=== PATIENT | female | born 1955 | race Caucasian/White ===

== ENCOUNTER → 2016-02-24 | Outpatient (CLI) | payer BC ==
[~2016-02-24] MED LIST: ACET325T96 PO; ASPCH81X PO; IBUP-1451 PO; LTMOPS OPB; METO25TA56 PO; MULT-513 PO; TRAZ50TA35 PO
[2016-02-24 13:14] LABS: BASO % 0.2 %; BASO ABS # 0.02 K/uL (0-0.2); COMPLETE YES; EOS % 1.4 %; HEMATOCRIT 42.9 % (37-47); IG% 0.1 %; LYMPH % 26.7 %; LYMPH ABS # 2.25 K/uL (1.2-3.4); MEAN CELL VOLUME 87.6 fL (80-100); MEAN CORPUSCULAR HEMOGLOBIN 29.4 pg (25-34); MEAN CORPUSCULAR HGB CONC 33.6 g/dl (32-36); MEAN PLATELET VOLUME 9.9 fL (7.4-10.4); MONO % 5.3 %; NEUT % 66.3 %; PLATELET COUNT 320 K/uL (130-400); WHITE BLOOD COUNT 8.42 K/uL (4.8-10.8)
[2016-02-24 13:52] LABS: ALT/SGPT 23 U/L (12-78); BLOOD UREA NITROGEN 18 mg/dl (7-18); CALCIUM 9.3 mg/dl (8.5-10.1); CARBON DIOXIDE 28 mmol/L (21-32); CHLORIDE 107 mmol/L (98-107); CREATININE 0.76 mg/dl (0.60-1.20); GLUCOSE 89 mg/dl (70-99); POTASSIUM 3.9 mmol/L (3.5-5.1); SODIUM 141 mmol/L (136-145)
[2016-02-24 14:02] LABS: ALB/GLOB RATIO 1.2 (0.9-2); ALKALINE PHOSPHATASE 74 U/L (45-117); AST/SGOT 14 U/L (15-37)
== END | disposition home or self-care (01) ==
LOC: C.LABBC 11:24
PROVIDERS: ATTEND Nurse Practitioner Family
DX: R53.83 Other fatigue (principal)

== ENCOUNTER → 2016-06-21 | Outpatient (CLI) | payer BC ==
--- NOTE | 2016-06-22 14:53 | MAMMOGRAPHY REPORT ---
BILATERAL DIGITAL SCREENING MAMMOGRAM TOMOSYNTHESIS WITH CAD: 06/21/2016 CLINICAL HISTORY: Routine screening. Patient has no complaints. TECHNIQUE: Breast tomosynthesis in addition to standard 2D mammography was performed. Current study was also evaluated with a Computer Aided Detection (CAD) system. COMPARISON: Comparison is made to exams dated: 06/12/2015 mammogram, 06/04/2014 mammogram, 06/03/2013 m ammogram, 05/03/2012 mammogram, 04/26/2011 mammogram, and 04/06/2010 mammogram - [facility] enter. BREAST COMPOSITION: The tissue of both breasts is heterogeneously dense, which may obscure small ma sses. FINDINGS: The parenchymal pattern is unchanged. No developing mass, architectural distortion or clu ster of suspicious microcalcifications is seen in either breast. IMPRESSION: ACR BI-RADS CATEGORY 2: BENIGN There is no mammographic evidence of malignancy. A 1 year screening mammogram is recommended. The p atient will receive written notification of the results. Approximately 10% of breast cancers are not detected with mammography. A negative mammographic repor t should not delay biopsy if a clinically suggestive mass is present. Dorene Galvin M.D. ay/:06/21/2016 17:26:57 Outsole Skiver: Tracy ALONZO(R)(M), [facility] letter sent: Normal 1/2 BI-RADS Code: ACR BI-RADS Category 2: Benign
== END ==
LOC: C.MAMM 13:56
PROVIDERS: ATTEND Nurse Practitioner Family
DX: Z12.31 Encounter for screening mammogram for malignant neoplasm of breast (principal)

== ENCOUNTER → 2017-01-04 | Outpatient (CLI) | payer BC | END | disposition home or self-care (01) | LOC: C.PAPS 11:02 | PROVIDERS: ATTEND Obstetrics & Gynecology | DX: Z01.419 Encounter for gynecological examination (general) (routine) without abnormal findings (principal) ==

== ENCOUNTER → 2017-01-27 | Outpatient (CLI) | payer BC ==
[~2017-01-27] MED LIST changes: +ACET-1693 PO; -ACET325T96 PO
--- NOTE | 2017-01-27 09:50 | DIAGNOSTIC IMAGING REPORT ---
R HEEL MIN 2 VIEWS HISTORY: 61 years-old Female HEEL PAIN subacute right heel pain for 6 weeks without known trauma or injury COMPARISON: None available TECHNIQUE: 2 views of the right calcaneus FINDINGS: Moderate enthesophyte noted at the Achilles insertion site about the calcaneus. Mild soft tissue prominence in the region of the distal Achilles tendon may reflect tendinosis. Small enthesophyte noted along the plantar margin of the calcaneus. No acute fracture or dislocation. Mild dorsal spurring of the midfoot. IMPRESSION: Degenerative changes as above without acute fracture. The above report was generated using voice recognition software. It may contain grammatical, syntax or spelling errors. Electronically signed by: Aiden Campos M.D. 01/27/2017 9:49 AM Dictated Date/Time: 01/27/2017 9:47 AM
[2017-01-27 11:03] LABS: BASO % 0.5 %; BASO ABS # 0.03 K/uL (0-0.2); EOS % 1.4 %; EOS ABS # 0.09 K/uL (0-0.5); HEMATOCRIT 43.7 % (37-47); HEMOGLOBIN 14.5 g/dL (12.0-16.0); IG# 0.01 K/uL (0.00-0.02); LYMPH % 29.9 %; LYMPH ABS # 1.98 K/uL (1.2-3.4); MEAN CELL VOLUME 87.2 fL (80-100); MEAN CORPUSCULAR HEMOGLOBIN 28.9 pg (25-34); MEAN CORPUSCULAR HGB CONC 33.2 g/dl (32-36); MEAN PLATELET VOLUME 9.6 fL (7.4-10.4); MONO % 6.9 %; MONO ABS # 0.46 K/uL (0.11-0.59); NEUT % 61.1 %; NEUT ABS # 4.05 K/uL (1.4-6.5); PLATELET COUNT 302 K/uL (130-400); RED CELL DISTRIBUTION WIDTH CV 12.4 % (11.5-14.5); RED CELL DISTRIBUTION WIDTH SD 39.8 fL (36.4-46.3); WHITE BLOOD COUNT 6.62 K/uL (4.8-10.8)
[2017-01-27 11:22] LABS: ALBUMIN 3.8 gm/dl (3.4-5.0); ALT/SGPT 20 U/L (12-78); BLOOD UREA NITROGEN 19 mg/dl (7-18); CALCIUM 8.4 mg/dl (8.5-10.1); CARBON DIOXIDE 24 mmol/L (21-32); CHOLESTEROL 185 mg/dl (0-200); CREATININE 0.74 mg/dl (0.60-1.20); GLUCOSE 96 mg/dl (70-99); POTASSIUM 3.8 mmol/L (3.5-5.1); SODIUM 139 mmol/L (136-145)
[2017-01-27 11:33] LABS: ALKALINE PHOSPHATASE 73 U/L (45-117); AST/SGOT 13 U/L (15-37); LDL CHOLESTEROL CALCULATED 106 mg/dl; TOTAL PROTEIN 7.2 gm/dl (6.4-8.2)
== END | disposition home or self-care (01) ==
LOC: C.RADBC 09:03
PROVIDERS: ATTEND Nurse Practitioner Family
DX: Z13.220 Encounter for screening for lipoid disorders (principal); R53.83 Other fatigue; Z82.49 Family history of ischemic heart disease and other diseases of the circulatory system

== ENCOUNTER → 2017-04-27 | Outpatient (CLI) | payer OTHER | END | disposition home or self-care (01) | LOC: C.LABBC 08:45 | PROVIDERS: ATTEND Nurse Practitioner Family | DX: R79.89 Other specified abnormal findings of blood chemistry (principal); R17 Unspecified jaundice ==

== ENCOUNTER → 2017-06-23 | Outpatient (CLI) | payer OTHER ==
--- NOTE | 2017-06-26 15:08 | MAMMOGRAPHY REPORT ---
BILATERAL DIGITAL SCREENING MAMMOGRAM TOMOSYNTHESIS WITH CAD: 06/23/2017 CLINICAL HISTORY: Routine screening. Patient has no complaints. TECHNIQUE: Breast tomosynthesis in addition to standard 2D mammography was performed. Current study was also evaluated with a Computer Aided Detection (CAD) system. COMPARISON: Comparison is made to exams dated: 06/21/2016 mammogram, 06/12/2015 mammogram, 06/04/2014 ma mmogram, 06/03/2013 mammogram, 05/03/2012 mammogram, and 04/26/2011 mammogram - [facility] nter. BREAST COMPOSITION: The tissue of both breasts is heterogeneously dense, which may obscure small mas ses. FINDINGS: There is a 14 mm asymmetry seen within the left breast along the posterior nipple line on t he cc view, as well as a 16 mm asymmetry seen within the left subareolar breast on the cc view more m edially, for which spot compression tomosynthesis views and possible breast ultrasound are recommende d for further evaluation. The remainder of both breasts are stable compared to prior exams, without suspicious masses, calcific ations, or areas of architectural distortion noted. Asymmetry in the right superior breast on the ML O view is stable compared to multiple prior exams including the 2010 exam. IMPRESSION: ACR BI-RADS CATEGORY 0: INCOMPLETE EVALUATION: NEED ADDITIONAL IMAGING EVALUATION Left breast asymmetries, for which additional imaging evaluation is recommended. The patient will be called to schedule an appointment. Approximately 10% of breast cancers are not detected with mammography. A negative mammographic report should not delay biopsy if a clinically suggestive mass is present. Fidelina Montalvo M.D. ah/:06/24/2017 11:34:36 Emts: Tracy ALONZO(R)(M), [facility] letter sent: Addl Imaging 0 BI-RADS Code: ACR BI-RADS Category 0: Incomplete Evaluation: Need Additional Imaging Evaluation
== END | disposition home or self-care (01) ==
LOC: C.MAMM 13:55
PROVIDERS: ATTEND Nurse Practitioner Family
DX: Z12.31 Encounter for screening mammogram for malignant neoplasm of breast (principal); N64.89 Other specified disorders of breast

== ENCOUNTER 2023-02-20 06:30 | Observation (INO) ==
--- NOTE | 2023-01-18 13:39 | PAT Medication Instructions ---
Medication Instructions Date of Service January 18, 2023 Home Medications Medication Instructions Recorded amoxicillin 500 mg capsule 2,000 mg (4 x 500 mg) PO .COMPLEX 09/24/18 #4 caps atenolol 25 mg tablet 12.5 mg (1/2 x 25 mg) PO HS #45 11/14/22 tabs acetaminophen 325 mg tablet (Tylenol) 325 - 650 mg PO Q4H PRN ibuprofen 800 mg tablet 800 mg PO BID PRN amoxicillin 500 mg capsule 2,000 mg (4 x 500 mg) PO .COMPLEX melatonin 10 mg tablet 5 mg PO HS PRN calcium carbonate-vitamin D3 1 tab PO DAILY atenolol 25 mg tablet 12.5 mg (1/2 x 25 mg) PO HS Lactobacil.acidophilus-Bifido.animalis 5 billion cell sprinkle capsule (Probiotic) 1 cap PO DAILY Continue as directed amoxicillin 500 mg capsule 2,000 mg (4 x 500 mg) PO .COMPLEX ASK your surgeon for instructions ibuprofen 800 mg tablet 800 mg PO BID PRN DO NOT take the morning of surgery calcium carbonate-vitamin D3 1 tab PO DAILY Lactobacil.acidophilus-Bifido.animalis 5 billion cell sprinkle capsule (Probiotic) 1 cap PO DAILY Take morning of surgery With a small sip of water, OTHERWISE NOTHING TO EAT OR DRINK AFTER MIDNIGHT: acetaminophen 325 mg tablet (Tylenol) 325 - 650 mg PO Q4H PRN(if needed) Take evening before surgery acetaminophen 325 mg tablet (Tylenol) 325 - 650 mg PO Q4H PRN(if needed) melatonin 10 mg tablet 5 mg PO HS PRN(if needed) atenolol 25 mg tablet 12.5 mg (1/2 x 25 mg) PO HS Other Notes If you have any questions please call us at [phone] or [phone] or [phone] or [phone]
--- NOTE | 2023-02-07 11:27 | Anesthesiology Consultation ---
Date of Service February 07, 2023 Assessment & Plan (1) Encounter for pre-operative examination: Plan - dyspnea: workload note sent to cardiology. - will attempt to obtain most recent PCP office note-Dr. Jeanette Miller. 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 Appropriately functioning mitral valve repair based on 2022 echo. 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 With discontinuation of beta-lucas in the past, her heart rate once again became tachycardic. No changes recommended today...Preop cardiac assessment: Based on today's visit, she is low cardiac risk for right knee surgery. She should remain on atenolol throughout the perioperative period without interruption..." Chart Review Chart Review: Pending: Refer to Additional Notes / Consult section and Patient seen in Pre Admission Testing Teaching & Discussion Pre-Anesthesia Teaching/Discussion Notes: Instructed NPO after midnight before surgery, except medications with 15 cc of water. Medication instructions provided according to the PAT guidelines. History Surgery Operation Date: 02/20/23 08:40 Proposed Procedures p Right Total Knee Arthroplasty - Dheeraj Peña DO Height/Weight Height: 5 ft 3.5 in Weight: 71.4 kg Allergies Allergy/AdvReac Type Severity Reaction Status Date / Time amoxicillin [From Augmentin] Allergy Severe Gastrointestinal Verified 02/07/23 11:30 Upset clavulanic acid Allergy Severe Gastrointestinal Verified 02/07/23 11:30 [From Augmentin] Upset phenazopyridine Allergy Unknown Rash Verified 01/11/23 09:24 [From Pyridium] Medications Home Medications Medication Instructions Recorded Confirmed Last Taken acetaminophen 325 mg tablet 325 - 650 mg PO Q4H PRN Headache 06/06/18 01/11/23 10/26/20 (Tylenol) ibuprofen 800 mg tablet 800 mg PO BID PRN Pain 06/06/18 01/11/23 Unknown amoxicillin 500 mg capsule 2,000 mg (4 x 500 mg) PO .COMPLEX 08/19/19 12/06/23 Unknown #4 caps melatonin 10 mg tablet 5 mg PO HS PRN Sleep 10/21/20 01/11/23 11/16/20 calcium carbonate-vitamin D3 1 tab PO DAILY 08/02/21 01/11/23 Unknown atenolol 25 mg tablet 12.5 mg (1/2 x 25 mg) PO HS #45 11/14/22 01/11/23 Unknown tabs Lactobacil.acidophilus-Bifido.animalis 1 cap PO DAILY 01/11/23 01/11/23 Unknown 5 billion cell sprinkle capsule (Probiotic) Additional Notes: Patient reports amoxicillin is an old dose, this was removed from EMR. Past Medical History Medical History History of blood transfusion Dyslipidemia Endocarditis of mitral valve Tachycardia Patient denies h/o stroke, seizures, heart attack, heart failure, DM, HTN, or blood clots/DVTs. Exercise / Class Metabolic Activity III < 4 Walking/Shop/Light housework (occasional shortness of breath with usual activities-ongoing x several months correlated to reduced physical activity with knee dysfunction per pt-denies recent change or worsening; denies chest discomfort) Past Family History Family History Mother No pertinent family history Past Surgical History Surgical History Slow to wake up after anesthesia History of transesophageal echocardiography (JOSÉ MIGUEL) Hx of tissue graft History of cataract surgery History of mitral valve repair History of lumbar discectomy History of History of colonoscopy Past Anesthesia History No Family Hx of Anesthesia Complications and Other (slow to wake) History of PONV History of PONV (denies needing scop patch) and Hx of Motion Sickness Social History Smoking Status: Never smoker Do You Dip or Chew Tobacco: No Hx Alcohol Use: Yes Alcohol type: wine alcohol intake frequency: a few times a week Hx Substance Use: No substance use type: does not use Review of Systems Snoring, denies witnessed apneas. Patient denies chest pain, reflux, fever, chills, cough, wheezing, or palpitations. Physical Exam Vital Signs Vitals BP 109/76 P 78 TEMP 98.2 SP02 96% on RA RESP 17 Physical Patient resting comfortably in chair in no acute distress, alert and oriented, responding appropriately throughout visit Full cervical extension range of motion without pain TMD 3.5 finger breadths Mallampati Score 2 Dentition: several implants-pt unsure of location, denies chipped or loose teeth, caps/crowns, or bridges Lungs: normal respiratory effort. Good air movement, clear throughout to auscultation, no adventitious breath sounds Cardiac: regular rate and rhythm, no murmurs noted Carotid arteries: negative bruit bilat Lab Results Anesthesia Preop Results Results Anesthesia Widget: WBC 7.33 K/ul (4.8-10.8) 02/07/23 Hgb 13.4 g/dl (12.0-16.0) 02/07/23 Hct 39.8 % (37.0-47.0) 02/07/23 Plt 327 K/uL (130-400) 02/07/23 Na 139 mmol/L (136-145) 02/07/23 K 4.1 mmol/L (3.5-5.1) 02/07/23 Cl 105 mmol/L (98-107) 02/07/23 CO2 28 mmol/L (21-32) 02/07/23 BUN 14 mg/dl (6-23) 02/07/23 Creat 0.73 mg/dl (0.6-1.2) 02/07/23 Glucose Level 94 mg/dl (70-99(Fasting)) 02/07/23 PT 10.9 Seconds (9.0-12.0) 02/07/23 PTT 30 Seconds (21-31) 02/07/23 INR 1.0 (0.9-1.1) 02/07/23 Blood Type O Positive 02/07/23 Antibody Screen NEGATIVE 02/07/23 Testing Electrocardiogram Date: 11/15/22 NSR, rate 94 bpm Chest X-Ray Date: 11/14/22 *1view* 1. No focal lung consolidations to suggest a pneumonia. 2. Lobular density within the right medial lung base which is new from the prior studies. This favors prominent mediastinal fat or a small fat-containing diaphragmatic hernia. Follow-up nonemergent chest CT is recommended for confirmation. Patient and her express plan to f/u with her PCP regarding CXR findings from a general medical standpoint. Echocardiogram Date: 04/13/22 EF 65-70% No LV regional wall motion abnormalities Septal motion consistent with prior cardiac surgery Mild cLVH Mitral valve repair and annuloplasty ring without significant regurgitation or stenosis Normal estimated RVSP Stress Test Date: 06/25/20 Negative stress echo and ECG for ischemia MPHR 88% EF 65% No LV regional wall motion abnormalities Moderate cLVH
--- NOTE | 2023-02-20 06:27 | History & Physical Bridge Note ---
Date of Service February 20, 2023 History & Physical Bridge Note I have examined the patient, reviewed the History & Physical and in the interval since the performance of the History & Physical I have noted the following changes of clinical significance: no changes noted
[~2023-02-20 06:30] MED LIST changes: -ACET-1693 PO; +ACETAMINOPHEN 500 MG TAB PO SCH; -ASPCH81X PO; +BUPIVACAINE 0.25% PF 30 ML VIAL ONE; +BUPIVACAINE 0.5 % 5 MG/1 ML PF 10ML VIAL ONE; +FAMOTIDINE 20 MG TAB PO SCH; +GABAPENTIN 300 MG CAP PO SCH; -IBUP-1451 PO; +LR 500ML BOLUS, THEN 15ML/HR IV SCH; +LR 60ML/HR IV SCH; -LTMOPS OPB; -METO25TA56 PO; -MULT-513 PO; +ROPIV 0.5% 246mg, Ketorolac 30mg, EPINEPHrine 0.5mg in NSS INFIL SCH; +TRANEXAMIC ACID 1,000 MG **IV Intra-op IV SCH; +TRANEXAMIC ACID 1,000 MG **IV Pre-op IV SCH; -TRAZ50TA35 PO; +ceFAZolin 2000MG 2,000 MG/15 ML SYR IV SCH; +dexAMETHasone**PF** 10 MG/ML VIAL IV SCH
[2023-02-20] MEDS ORDERED: ONDANSETRON INJ 2 MG/ML 2 ML VIAL ONE (06:50)
[2023-02-20] MEDS ORDERED: MIDAZOLAM HCL 1 MG/ML 2ML VIAL ONE (06:50)
[2023-02-20] MEDS ORDERED: PROPOFOL IV EMULSION 10 MG/ML 20 ML VIAL IV ONE (06:50)
[2023-02-20] MEDS ORDERED: LIDOCAINE 2% 2 ML VIAL/AMP(20MG/ML) INFIL ONE (06:50)
[2023-02-20] MEDS ORDERED: ORTHO JOINT ANESTHETIC ONE (07:04)
[2023-02-20] MEDS ORDERED: ATROPINE SULFATE 0.1 MG/ML 10ML SYR IV PRN (07:30)
[2023-02-20] MEDS ORDERED: ePHEDrine sulfate 50 MG/ML AMP IV PRN (07:30)
[2023-02-20] MEDS ORDERED: ONDANSETRON INJ 2 MG/ML 2 ML VIAL IV PRN ×2 (07:30→11:06)
[2023-02-20] MEDS ORDERED: fentaNYL citrate PF 100 MCG/2 ML VIAL IV PRN (07:30)
[2023-02-20] MEDS ORDERED: PHENYLEPHRINE 100MCG/ML 10ML SYR IV ONE (08:30)
--- NOTE | 2023-02-20 09:08 | Operative Report ---
PG Post Operative Report Pre & Post Diagnosis Operation Date: 02/20/23 08:00 Pre-Op Diagnosis: Degenerative joint disease Right Knee Post-Op Diagnosis: Degenerative joint disease Right Knee I identified the patient and participated in the time-out.: Yes Procedure Operation Date: 02/20/23 08:00 Actual Procedures p Right Total Knee Arthroplasty(Right) - Dheeraj Peña DO Surgeon Dheeraj Peña DO Production Maintenance Technician Aiden Mendosa PA-C Estimated Blood Loss 30 Findings Consistent with Post-Op Diagnosis Specimens Right femoral and tibial bone Description of Procedure Implants used: I used a Edelmira Persona total knee arthroplasty system with a size 8 narrow femur, D tibia, 28 oval patella, and a size 13 medial congruent polyethylene bearing. All components were cemented in place with Biomet cement. Anastasiya arrived [facility] for the above procedure. She was seen in the preoperative holding area and the operative extremity was identified and signed. She was given a preoperative antibiotic, TXA, a spinal anesthetic and an adductor nerve block. She was taken back to the operating room and laid on the table in supine position. She was given basic sedation. The operative knee was then prepped and draped in sterile fashion. A timeout was done, and the patient and the operative extremity was properly identified. A midline incision was made directly over the patella. Dissection was taken down to the extensor mechanism. A midvastus arthrotomy was used. The medial retinaculum was released and the fat pad was mostly excised. The knee was flexed and the ACL, PCL, and meniscus were removed. A drill was sent down the center of the femoral canal followed by an intramedullary baljit. Off that baljit a distal femoral cutting block was placed. 9 mm was resected off the distal femur at 5 of valgus. A posterior referencing AP sizing guide was then placed on the distal femur. The femur measured to be a size 8. 2 drill holes were placed in 3 of external rotation. A 4-in-1 cutting block was then impacted into place. Anterior, posterior, and chamfer cuts were then made. The proximal tibia was then exposed. An external tibial alignment guide was placed. A tibial cut guide was then anchored in place and the proximal tibia was then resected. The posterior aspect of the knee was then opened up and any additional meniscus fragments and osteophytes were removed. The tibia measured to be a size D. The tibial plate was then placed in the appropriate rotation and the tibia was drilled and punched. Trial components were then placed. I used a size 13 medial congruent polyethylene insert. The knee was brought through a full range of motion and felt to be stable. The peg holes for the femoral component were then drilled. The patella was then everted and 9 mm was resected off the posterior aspect of the patella. The patella measured to be a size 28 oval. 3 peg holes were then drilled. A trial patella was placed. The knee was once again brought through a full range of motion and felt to be stable. Trial components were then removed. The surrounding soft tissues were injected with 100 cc of an orthopedic pain control cocktail. All components were then cemented into place with Biomet cement. The final polyethylene insert was then snapped into place. Once cement was dry the tourniquet was deflated. Hemostasis was obtained. A dilute betadyne lavage was then done for 3 minutes. The joint was then irrigated with normal saline solution. The midvastus arthr otomy was then closed with #1 Vicryl suture. The skin was closed with 2-0 Vicryl, 3-0V lock suture, and claudio. A soft compressive dressing was placed. She was then transferred to a hospital bed and taken to the postanesthesia care unit in stable condition. She tolerated the procedure well. Aiden Mendosa PA-C, was present for the entire procedure. He was critical for patient positioning, prepping, draping, retraction exposure, wound closure and application of sterile dressing. I attest to the content of the Intraoperative Record and any orders documented therein. Any exceptions are noted below.
--- NOTE | 2023-02-20 10:19 | XRay Report ---
XR knee RT 1 or 2V routine HISTORY: 67 years-old Female Surgical Post Op right knee arthroplasty COMPARISON: 08/11/2022 TECHNIQUE: 2 views of the right knee FINDINGS: Total joint arthroplasty with patellar resurfacing. Anterior midline skin claudio with expected posto perative swelling and deep tissue air. No acute fracture or unexpected opaque foreign body. IMPRESSION: Total joint arthroplasty with expected postoperative changes. ACT 112: Negative or not required by law. The above report was generated using voice recognition software. It may contain grammatical, syntax o r spelling errors. Electronically signed by: Vicente Campos M.D. 02/20/2023 10:17 AM
[2023-02-20] MEDS ORDERED: LORazepam 1 MG TAB PO PRN (11:06)
[2023-02-20] MEDS ORDERED: MAGNESIUM HYDROXIDE SUSP 30 ML UDC PO PRN (11:06)
[2023-02-20] MEDS ORDERED: HYDROmorphone INJ 0.5 MG/0.5 ML SYR IV PRN (11:06)
[2023-02-20] MEDS ORDERED: NALOXONE HCL 0.4 MG/1 ML VIAL/CARP IV PRN (11:06)
[2023-02-20] MEDS ORDERED: METOCLOPRAMIDE HCL INJ 5 MG/ML 2 ML VIAL IV PRN (11:06)
[2023-02-20] MEDS ORDERED: SODIUM CHLORIDE 0.9% 1,000 ML IV SCH (11:06)
[2023-02-20] MEDS ORDERED: traMADol HCL 50 MG TABLET PO PRN (11:06)
[2023-02-20] MEDS ORDERED: bisacodyL 10 MG SUPP PR PRN (11:06)
[2023-02-20] MEDS: KETOROLAC TROMETHAMINE 15 MG/ML VIAL IV SCH ×3 (12:14→23:38)
--- NOTE | 2023-02-20 13:06 | Anesthesiology Progress Note ---
Date of Service February 20, 2023 Anesthesia Post Procedure Vital Signs Vital Signs: Temp Pulse Pulse Resp BP Pulse Ox O2 Del Method 02/20/23 12:00 36.6 C 74 16 105/70 92 Room Air 02/20/23 11:30 37.0 C 71 16 105/69 94 Room Air 02/20/23 11:06 36.7 C 76 20 114/75 95 Room Air 02/20/23 10:45 73 20 110/73 92 Room Air 02/20/23 10:30 36.3 C L 74 20 111/75 95 Room Air 02/20/23 10:20 75 20 114/73 97 Room Air 02/20/23 10:10 76 20 108/71 95 Room Air 02/20/23 10:00 76 19 108/72 99 Oxymask 02/20/23 09:50 77 19 100/68 97 Oxymask 02/20/23 09:40 71 16 96/62 L 99 Oxymask 02/20/23 09:30 36.0 C L 83 20 98/64 L 95 Oxymask 02/20/23 06:47 36.5 C 83 21 145/85 H 96 Room Air O2 Flow Rate 02/20/23 12:00 02/20/23 11:30 02/20/23 11:06 02/20/23 10:45 02/20/23 10:30 02/20/23 10:20 02/20/23 10:10 02/20/23 10:00 2 02/20/23 09:50 4 02/20/23 09:40 6 02/20/23 09:30 6 02/20/23 06:47 Pain Intensity Right Knee: Pain Intensity: 0 Transfer of Care Handoff Completed per policy Notes Mental Status: alert / awake / arousable Patient Amnestic to Procedure: Yes Nausea / Vomiting: adequately controlled Pain: adequately controlled Airway Patency, RR, SpO2: stable & adequate BP & HR: stable & adequate Hydration State: stable & adequate Neuraxial Anesthesia: was administered and sensory block is resolving Anesthetic Complications: no major complications apparent and Pt Satisfied with anesthetic care
[2023-02-20] MEDS: ACETAMINOPHEN 500 MG TAB PO SCH ×2 (13:42→21:42)
[2023-02-20] MEDS: ceFAZolin 2000MG 2,000 MG/15 ML SYR IV SCH ×2 (17:38→23:38)
[2023-02-20] MEDS: oxyCODONE HCL IR 5 MG TAB (IMMEDIATE RELEASE) PO PRN (20:14)
[2023-02-20] MEDS: DOCUSATE SODIUM 100 MG CAP PO SCH (20:17)
[2023-02-20] MEDS: ASPIRIN 81 MG ECTAB PO SCH (20:17)
[2023-02-20] MEDS ORDERED: SENNA 8.6 MG TAB PO SCH (21:00)
[2023-02-20] MEDS ORDERED: ATENOLOL 25 MG TABLET PO SCH (21:00)
[2023-02-21] MEDS: oxyCODONE HCL IR 5 MG TAB (IMMEDIATE RELEASE) PO PRN ×3 (04:15→12:15)
[2023-02-21] MEDS: KETOROLAC TROMETHAMINE 15 MG/ML VIAL IV SCH (05:53)
[2023-02-21] MEDS: ACETAMINOPHEN 500 MG TAB PO SCH (05:53)
[2023-02-21] MEDS ORDERED: dexAMETHasone 4 MG TAB PO SCH (08:00)
[2023-02-21] MEDS: ASPIRIN 81 MG ECTAB PO SCH (08:09)
[2023-02-21] MEDS: DOCUSATE SODIUM 100 MG CAP PO SCH (08:10)
[2023-02-21] MEDS ORDERED: MULTIVITAMIN TAB PO SCH (09:00)
--- NOTE | 2023-02-21 09:54 | Orthopedic Progress Note ---
Date of Service February 21, 2023 Assessment & Plan (1) Status post right knee replacement: Overall, she is doing quite well today with good pain control to the right knee. She is going to work with physical therapy later on today to work on ambulation and range of motion exercises. She is on aspirin for DVT prophylaxis. She can be discharged home later today pending physical therapy evaluation. She will follow-up with orthopedics in 2 weeks for postoperative care. Subjective . Anastasiya was seen and evaluated at bedside today resting comfortably in no apparent distress. She notes that her pain is well-controlled to the right knee. She has been up and ambulating to the bathroom with no significant issues. She has yet to be seen by physical therapy today. She denies any other concerns today. Review of Systems All systems reviewed & are unremarkable except as noted in HPI & below. Physical Exam . On physical examination of the right knee, dressings are clean, dry, intact. Her leg is out in full extension. She has active plantarflexion dorsiflexion of the right ankle. +2 DP and PT pulses. Less than 2-second capillary refill. Normal sensation. Neurovascular intact. Results & Data Results & Data Laboratory Results . Diagnostic Findings . Postoperative x-rays of the right knee show prosthesis to be in anatomical alignment with no signs of fracture complication or loosening. PG Care Time/CCT Total # of Minutes Spent Total Time Spent with Patient: Total time spent is greater than 50% in coordination of care (as documented) at patient's floor/unit and/or counseling patient: Coding Level of Care Code 64837 Post Operative Follow-Up Diagnoses Status post right knee replacement Z96.651
--- NOTE | 2023-02-21 09:56 | Discharge Summary ---
Date of Service February 21, 2023 Principal Diagnosis Same as "Discharge Diagnosis" noted below under Discharge Instructions. Discharge Exam . On physical examination of the right knee, dressings are clean, dry, intact. Her leg is out in full extension. She has active plantarflexion dorsiflexion of the right ankle. +2 DP and PT pulses. Less than 2-second capillary refill. Normal sensation. Neurovascular intact. Discharge Data Procedures Performed Operation Date: 02/20/23 08:00 Actual Procedures p Right Total Knee Arthroplasty(Right) - Dheeraj Peña DO Ordered Studies 02/20/23 07:48 US - OR guided needle placemen Routine Hospital Course (1) Status post right knee replacement: On February 20, 2023 Anastasiya arrived at [facility] and underwent a right total knee arthroplasty with Dr. Peña with no complications. She had a spinal anesthetic. Postoperatively, she was started on aspirin for DVT prophylaxis and transferred to the general orthopedic floor in stable condition. Her hospital course was uneventful. On postoperative day #1, her vital signs were stable and her pain was well-controlled. She participated well with physical therapy doing ambulation and range of motion exercises. She was then discharged home in stable condition. She will follow-up with orthopedics in 2 weeks for postoperative care. PG Care Time/CCT Total # of Minutes Spent Total Time Spent with Patient: Total time spent is greater than 50% in coordination of care (as documented) at patient's floor/unit and/or counseling patient: Discharge Plan Discharge Items Patient Disposition: Home - Home Health Services Reason For Visit: DJD Right Knee Discharge Diagnosis: Same Activity: Per Instructions section Non-emergency contact: Surgeon Call non-emergency contact if: your temperature is above 101.5, your wound has increased redness and your wound has increased drainage Follow-up/Referrals: Jeanette Miller CRNP [Primary Care Provider] - Dheeraj Peña DO [Physician] - 03/08/23 11:50 am Diet: Regular Ambulatory Orders: Type and Screen (Routine) Timeframe: 1 Day Location: Determined by Patient Ordered By: Chuyita Dickerson Attending Provider Instructions: Activity and Therapy Recommendations: * If you are using [facility] then therapy will be provided at your home until they feel you have accomplished all of your goals. * If you are using [facility] then Physical Therapy will be provided until they feel you are ready to start Outpatient Physical Therapy. * If you are not using home therapy then Outpatient Physical Therapy should start about 3-5 days from your day of surgery. Therapy will last about 6-10 weeks * It is important not to put a pillow under your knee when you are relaxing or sleeping. It is just as important to make sure you are getting your knee perfectly straight as it is to regain your knee bend. * You were shown a series of exercises in the hospital. Do these exercises three times each day including the exercises you were shown in physical therapy. * Get up and walk several times each day. For the first four weeks, try not to stand or walk for more than one hour at a time. If you do stand or walk for more than one hour, you will not hurt anything, but your leg will likely swell. * As you feel comfortable, you may change from the walker or crutches to a cane and then to independent walking. Medications: * Narcotic You will likely be sent home from the hospital with a prescription for the narcotic pain medication that worked best throughout your stay. * Cefadroxil -take the antibiotic twice a day for 10 days to help prevent infection. * Aspirin Most patients will be required to take Aspirin 81mg twice a day for 6 weeks after surgery. This is obtained [id number] and a prescription is not necessary. * Other medications may be prescribed for specific circumstances. If you have any questions, please call the office at . * Resume previous home medications unless otherwise instructed TEDs/Elastic Stockings: The white elastic stockings help limit swelling and prevent blood clots from forming in your legs.~ The more you wear them, the more they work. Wear them for six weeks. Dressing Care: The dressing can be changed after physical therapy on postop day #1. Daily dry dressing changes for a few days, especially if the incision is still draining some. If the incision is not draining then you may leave the claudio open to air. If there is a little bit of drainage or if the claudio are getting stuck on your clothing then cover the incision with a dry dressing. The claudio will be removed at your 2 week follow-up appointment. Showering: You may shower 5 days from the day of surgery as long as the incision is no longer draining. You may shower with the claudio exposed. Let soapy water run over the claudio and pat them dry. Do not scrub or soak the incision. Things To Watch For: * Drainage from the incision site that occurs more than one week after your surgery. * Increased redness at the incision site. * Fever above 102 degrees Fahrenheit. * Unusual chest pain or shortness of breath. * Call [facility] at with any of the above problems Follow-Up Visit: Follow-up with Dr. Peña's PA (Dheeraj Talamantes) 2-3 weeks after your day of surgery. He will remove your claudio and answer any questions. If you have any additional questions or concerns, Dr Peña is usually in the office at the same time and will be available An appointment was probably scheduled when you signed-up for surgery in the office. If you have any questions call Office Instructions: More detailed instructions as well as Frequently Asked Questions were provided in a folder by our office when you signed-up for surgery. Please review these instructions when you get home. If you have any further questions or concerns, please feel free to call the office at [phone] Pending Studies at Discharge: No Stand-Alone Forms: My [facility], Smoking Cessation Medications and DC Order Prescriptions: New aspirin 81 mg Tablet,Delayed Release (Dr/Ec) 81 mg PO BID 42 Days Qty: 84 0RF oxycodone 5 mg Tablet 5 mg PO Q6 PRN (Reason: pain) Qty: 30 0RF cefadroxil 500 mg capsule 500 mg PO BID 10 Days Qty: 20 0RF Continued atenolol 25 mg tablet 12.5 mg PO HS Qty: 45 3RF lorazepam 1 mg tablet 1 mg PO TID PRN (Reason: anxiety) Qty: 20 0RF Rx Instructions: Take 1 tablet by mouth every 8 to 12 hours as needed for anxiety. You may take this on the morning of surgery with sips of water. amoxicillin 500 mg capsule 2,000 mg PO .COMPLEX Qty: 4 5RF Rx Instructions: 2,000 mg PO 1 hour prior to dental appointment calcium carbonate-vitamin D3 1 tab PO DAILY acetaminophen [Tylenol] 325 mg Tablet 325 - 650 mg PO Q4H PRN (Reason: Headache) melatonin 10 mg Tablet 5 mg PO HS PRN (Reason: Sleep) Probiotic 5 billion cell Capsule, Sprinkle 1 cap PO DAILY Discontinued ibuprofen 800 mg Tablet 800 mg PO BID PRN (Reason: Pain) Admission Data Admit Date/Time: 02/20/23 09:42 Attending Provider: Dheeraj Peña Admit Provider: Dheeraj Peña Primary Care Provider: Jeanette Miller
== END 2023-02-21 12:25 | disposition home health service (06) ==
LOC: 3E 06:30 → ASU 06:30